=== PATIENT | female | born 1960 | race American Indian/Alaskan Native ===

== ENCOUNTER 2017-08-10 16:47 | Emergency (ER) | payer OTHER ==
[2017-08-11] MEDS: CATAPRES PO ONE (01:53)
[2017-08-11] MEDS: NITROSTAT SL ONE (01:54)
[2017-08-11 03:07] LABS: Basophils % (Auto) 0.2 % (0.0-1.8); Eosinophils % (Auto) 0.5 % (0.0-4.3); Hematocrit 45.9 % (30.3-42.9); Hemoglobin 15.6 gm/dl (10.1-14.3); Mean Corpuscular HGB Conc 34 % (30-34); Mean Corpuscular Hemoglobin 32 pg (28-32); Mean Corpuscular Volume 93 fl (79-97); Red Blood Count 4.92 M/mm3 (3.65-5.03); Red Cell Distribution Width 14.1 % (13.2-15.2); White Blood Count 6.5 K/mm3 (4.5-11.0)
[2017-08-11 03:09] LABS: Anion Gap 18 mmol/L; BUN/Creatinine Ratio 19; Blood Urea Nitrogen 13 mg/dL (7-17); Calcium 9.6 mg/dL (8.4-10.2); Carbon Dioxide 27 mmol/L (22-30); Chloride 96.8 mmol/L (98-107); Glucose 123 mg/dL (65-100); Potassium 3.8 mmol/L (3.6-5.0); Sodium 138 mmol/L (137-145)
[2017-08-11 03:13] LABS: Platelet Count 84 K/mm3 (140-440)
[2017-08-11 03:18] LABS: INR 0.87 (0.87-1.13)
[2017-08-11 03:19] LABS: Partial Thromboplastin Time 27.2 Sec. (24.2-36.6)
[2017-08-11] MEDS: PERCOCET 5/325 PO ONE (04:51)
--- NOTE | 2017-08-11 05:36 | Emergency Department Report ---
ED Chest Pain HPI - General Chief Complaint: Chest Pain Stated Complaint: CHEST PAIN Time Seen by Provider: 08/11/17 03:55 Source: patient, old records reviewed Mode of arrival: Ambulatory Limitations: No Limitations - History of Present Illness Initial Comments: 56-year-old female with a past medical history of asthma, or hypertension, and previous tubal ligation presents to the hospital pending a chest pain 1 day. Patient states pain was initially sharp, but while waiting to be evaluated in the ED it is now squeezing and pressure-like. Pain is constant. Worse with movement. Initially patient denies shortness of breath. She reports shortness of breath during pain episodes. No complaints of nausea, vomiting, diaphoresis , calf tenderness or edema. 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 Patient was admitted here in December for chest pain and negative CT angiogram and stress test. Patient presented with elevated blood pressure in a pool clonidine 0.2 given in triage. She admits to intermittent compliance with her medications. PMD Dr Lewis Severity scale (0 -10): 7 - Related Data Home Medications Medication Instructions Recorded Confirmed Last Taken Naproxen Sodium [Aleve TAB] 220 mg PO PRN PRN 01/22/15 01/02/17 01/15/15 Previous Rx's Medication Instructions Recorded Last Taken Type Carvedilol [Coreg] 6.25 mg PO BID #60 tablet 01/03/17 Unknown Rx Lisinopril [Zestril TAB] 40 mg PO BID #60 tablet 01/03/17 Unknown Rx Pantoprazole [Protonix TAB] 40 mg PO DAILY #30 tablet 01/03/17 Unknown Rx metFORMIN [Glucophage] 500 mg PO BID #60 tablet 01/03/17 Unknown Rx oxyCODONE /ACETAMINOPHEN [Percocet 1 tab PO Q6HR PRN #15 tablet 08/11/17 Unknown Rx 5/325] Allergies Allergy/AdvReac Type Severity Reaction Status Date / Time erythromycin base Allergy Rash Verified 08/01/13 16:21 [Erythromycin Base] hydrocodone [Hydrocodone] Allergy Rash Verified 08/01/13 16:21 Penicillins Allergy Rash Verified 08/01/13 16:21 Sulfa (Sulfonamide Allergy Rash Verified 08/01/13 16:21 Antibiotics) tetracycline [Tetracycline] Allergy Rash Verified 08/01/13 16:21 Heart Score - HEART Score History: Slightly suspicious EKG: Non-specific Age: < 45 Risk factors: 1-2 risk factors Troponin: < normal limit HEART Score: 2 ED Review of Systems ROS: Stated complaint: CHEST PAIN Other details as noted in HPI Comment: All other systems reviewed and negative Other: Constitutional: No fevers chills or weight loss Eyes: No eye pain visual changes or discharge ENT: No ear pain or throat pain Neck: Denies pain Respiratory: As per HPI Cardiovascular: Denies palpitations, syncope GI: Denies abdominal pain, nausea, vomiting : Denies dysuria, urinary frequency, or urgency Musculoskeletal: Denies back pain, joint swelling Skin: Denies rash, lesions, erythema Neurologic: Denies headache, numbness, weakness Psychiatric: Denies suicidal ideation, hallucinations ED Past Medical Hx - Past Medical History Previous Medical History?: Yes Hx Hypertension: Yes Hx Congestive Heart Failure: No Hx Diabetes: Yes Hx GERD: Yes Hx Asthma: Yes Hx COPD: No Hx HIV: No - Surgical History Past Surgical History?: Yes Additional Surgical History: tubal ligation - Social History Smoking Status: Never Smoker - Medications Home Medications: Home Medications Medication Instructions Recorded Confirmed Last Taken Type Naproxen Sodium [Aleve TAB] 220 mg PO PRN PRN 01/22/15 01/02/17 01/15/15 History Carvedilol [Coreg] 6.25 mg PO BID #60 tablet 01/03/17 Unknown Rx Lisinopril [Zestril TAB] 40 mg PO BID #60 tablet 01/03/17 Unknown Rx Pantoprazole [Protonix TAB] 40 mg PO DAILY #30 tablet 01/03/17 Unknown Rx metFORMIN [Glucophage] 500 mg PO BID #60 tablet 01/03/17 Unknown Rx oxyCODONE /ACETAMINOPHEN [Percocet 1 tab PO Q6HR PRN #15 tablet 08/11/17 Unknown Rx 5/325] ED Physical Exam - General Limitations: No Limitations - Other Other exam information: General: No limitations, patient is alert in no acute distress Head exam: Atraumatic, normocephalic Eyes exam: Normal appearance ENT: Moist mucous membrane, normal oropharynx Neck exam: Normal inspection, full range of motion, no meningismus nontender Respiratory exam: Clear to auscultation bilateral, no wheezes, rales, crackles Cardiovascular: Normal rate and rhythm, normal heart sounds. Reproducible mid sternal chest wall tenderness Abdomen: Soft, nondistended, and nontender, with normal bowel sounds, no rebound, or guarding Extremity: Full range of motion normal inspection no deformity, tenderness or edema Back: Normal Inspection, full range of motion, no tenderness Neurologic: Alert, oriented x3, cranial nerves intact, no motor or sensory deficit Psychiatric: normal affect, normal mood Skin: Warm, dry, intact ED Course Vital Signs 08/10/17 08/11/17 08/11/17 16:58 01:25 01:53 Temperature 98.3 F 98.1 F Pulse Rate 84 65 73 Respiratory 18 22 Rate Blood Pressure 138/100 195/105 195/105 Blood Pressure [Right] O2 Sat by Pulse 100 98 Oximetry 08/11/17 08/11/17 08/11/17 01:54 01:57 02:57 Temperature 98.2 F Pulse Rate 73 87 76 Respiratory 18 18 Rate Blood Pressure 195/105 97/69 Blood Pressure 141/95 [Right] O2 Sat by Pulse 100 97 Oximetry 08/11/17 08/11/17 08/11/17 03:28 03:30 03:46 Temperature Pulse Rate 66 72 Respiratory 18 19 18 Rate Blood Pressure 117/85 Blood Pressure [Right] O2 Sat by Pulse 98 Oximetry 08/11/17 08/11/17 08/11/17 04:00 04:30 04:51 Temperature Pulse Rate 58 L 52 L Respiratory 12 14 18 Rate Blood Pressure 117/85 116/73 Blood Pressure [Right] O2 Sat by Pulse 98 Oximetry MAXIME score - Maxime Score Age > 65: (0) No Aspirin use within the Past 7 Days: (0) No 3 or more CAD Risk Factors: (0) No 2 or more Angina events in past 24 hrs: (0) No Known CAD with more than 50% Stenosis: (0) No Elevated Cardiac Markers: (0) No ST Deviation Greater than 0.5mm: (0) No MAXIME Score: 0 ED Medical Decision Making - Lab Data Result diagrams: 08/11/17 02:28 08/11/17 02:28 Lab Results 08/11/17 08/11/17 08/11/17 Range/Units 02:28 02:28 02:28 WBC 6.5 (4.5-11.0) K/mm3 RBC 4.92 (3.65-5.03) M/mm3 Hgb 15.6 H (10.1-14.3) gm/dl Hct 45.9 H (30.3-42.9) % MCV 93 (79-97) fl MCH 32 (28-32) pg MCHC 34 (30-34) % RDW 14.1 (13.2-15.2) % Plt Count 84 L (140-440) K/mm3 Lymph % (Auto) 43.7 H (13.4-35.0) % [place] % (Auto) 11.2 H (0.0-7.3) % Eos % (Auto) 0.5 (0.0-4.3) % Baso % (Auto) 0.2 (0.0-1.8) % Lymph # 2.8 (1.2-5.4) K/mm3 [place] # 0.7 (0.0-0.8) K/mm3 Eos # 0.0 (0.0-0.4) K/mm3 Baso # 0.0 (0.0-0.1) K/mm3 Seg Neutrophils % 44.4 (40.0-70.0) % Seg Neutrophils # 2.9 (1.8-7.7) K/mm3 PT 12.3 (12.2-14.9) Sec. INR 0.87 (0.87-1.13) APTT 27.2 (24.2-36.6) Sec. D-Dimer (0-234) ng/mlDDU Sodium 138 (137-145) mmol/L Potassium 3.8 (3.6-5.0) mmol/L Chloride 96.8 L (98-107) mmol/L Carbon Dioxide 27 (22-30) mmol/L Anion Gap 18 mmol/L BUN 13 (7-17) mg/dL Creatinine 0.7 (0.7-1.2) mg/dL Estimated GFR > 60 ml/min BUN/Creatinine Ratio 19 % Glucose 123 H (65-100) mg/dL Calcium 9.6 (8.4-10.2) mg/dL Troponin T < 0.010 (0.00-0.029) ng/mL 08/11/17 08/11/17 Range/Units 04:19 04:19 WBC (4.5-11.0) K/mm3 RBC (3.65-5.03) M/mm3 Hgb (10.1-14.3) gm/dl Hct (30.3-42.9) % MCV (79-97) fl MCH (28-32) pg MCHC (30-34) % RDW (13.2-15.2) % Plt Count (140-440) K/mm3 Lymph % (Auto) (13.4-35.0) % [place] % (Auto) (0.0-7.3) % Eos % (Auto) (0.0-4.3) % Baso % (Auto) (0.0-1.8) % Lymph # (1.2-5.4) K/mm3 [place] # (0.0-0.8) K/mm3 Eos # (0.0-0.4) K/mm3 Baso # (0.0-0.1) K/mm3 Seg Neutrophils % (40.0-70.0) % Seg Neutrophils # (1.8-7.7) K/mm3 PT (12.2-14.9) Sec. INR (0.87-1.13) APTT (24.2-36.6) Sec. D-Dimer 235.06 H (0-234) ng/mlDDU Sodium (137-145) mmol/L Potassium (3.6-5.0) mmol/L Chloride (98-107) mmol/L Carbon Dioxide (22-30) mmol/L Anion Gap mmol/L BUN (7-17) mg/dL Creatinine (0.7-1.2) mg/dL Estimated GFR ml/min BUN/Creatinine Ratio % Glucose (65-100) mg/dL Calcium (8.4-10.2) mg/dL Troponin T < 0.010 (0.00-0.029) ng/mL - EKG Data -: EKG Interpreted by Me (sinus rate 70, no stemi, no t inv) - EKG Data When compared to previous EKG there are: no significant change (compared to December 2016) - Radiology Data Radiology results: image reviewed (chest x-ray: No acute findings) - Medical Decision Making Patient's troponin is negative after being in the ED greater than 10 hours. Negative stress test December 2016 as well as negative CT angiogram chest. D- dimer is less than 250 and pain is reproducible without signs of DVT and a low pretest probability.. Patient received Percocet for pain with relief. Given a history of GERD NSAIDs will be avoided. Patient was treated symptomatically for pain and encouraged to follow up as an outpatient. Patient has chronic thrombocytopenia that is unchanged compared to previous Patient states she is being worked up as an outpatient for her thrombocytopenia by Dr Hernandez - Differential Diagnosis costochondritis, PR, unstable angina, PE Critical Care Time: No Critical care attestation.: If time is entered above; I have spent that time in minutes in the direct care of this critically ill patient, excluding procedure time. ED Disposition Clinical Impression: Costochondral chest pain, Uncontrolled hypertension, Thrombocytopenia Disposition: TO HOME OR SELFCARE Is pt being admited?: No Condition: Stable Instructions: Hypertension (ED), Costochondritis (ED) Additional Instructions: Take the medication as prescribed. Return if symptoms worsen. Prescriptions: oxyCODONE /ACETAMINOPHEN [Percocet 5/325] 1 tab PO Q6HR PRN #15 tablet PRN Reason: Pain Referrals: BRUNO LEWIS MD [Staff Physician] - 3-5 Days Time of Disposition: 05:43
[2017-08-11 05:54] VITALS: BP 102/70
--- NOTE | 2017-08-11 07:33 | XRay Report ---
AP CHEST: HISTORY: chest pain AP view of the chest demonstrates a normal mediastinal and cardiac contour with clear lungs and normal bony and soft tissue structures. IMPRESSION: Unremarkable AP chest.
== END 2017-08-11 06:14 | disposition home or self-care (01) ==
LOC: ED 16:47
DX: M94.0 Chondrocostal junction syndrome [Tietze] (principal); I10 Essential (primary) hypertension; D69.6 Thrombocytopenia, unspecified; E11.9 Type 2 diabetes mellitus without complications; K21.9 Gastro-esophageal reflux disease without esophagitis; J45.909 Unspecified asthma, uncomplicated
CPT/HCPCS: 36415; 71010; 80048; 84484; 85025; 85379; 85610; 85730; 93005; 93010

== ENCOUNTER 2017-11-04 23:32 | Emergency (ER) | payer OTHER ==
[2017-11-05] MEDS ORDERED: ASPIRIN PO ONE (00:24)
[2017-11-05 00:53] LABS: Hematocrit 40.3 % (30.3-42.9); Hemoglobin 13.3 gm/dl (10.1-14.3); Mean Corpuscular HGB Conc 33 % (30-34); Mean Corpuscular Hemoglobin 31 pg (28-32); Mean Corpuscular Volume 96 fl (79-97); Red Blood Count 4.21 M/mm3 (3.65-5.03)
[2017-11-05 00:57] LABS: Platelet Count 84 K/mm3 (140-440)
[2017-11-05 01:08] LABS: BUN/Creatinine Ratio 20; Blood Urea Nitrogen 12 mg/dL (7-17); Calcium 9.2 mg/dL (8.4-10.2); Hemolysis Index 4
[2017-11-05 04:49] LABS: Anisocytosis 1+; Band Neutrophils # (Manual) 0.1 K/mm3; Basophils % (Manual) 0 % (0.0-1.8); Total Cells Counted 100
[2017-11-05 04:50] LABS: Large Platelets Few; Platelet Estimate Consistent w Auto
[2017-11-05] MEDS ORDERED: CARAFATE PO ONE (06:57)
[2017-11-05] MEDS ORDERED: ALUM-MAG HYDROX-SIMETH 200-200-20MG/5ML PO ONE (06:57)
[2017-11-05] MEDS ORDERED: TYLENOL PO ONE (06:57)
--- NOTE | 2017-11-05 06:58 | Emergency Department Report ---
ED Chest Pain HPI - General Chief Complaint: Chest Pain Stated Complaint: CHEST PAIN Time Seen by Provider: 11/05/17 06:44 Source: patient, RN notes reviewed Mode of arrival: Ambulatory Limitations: No Limitations - History of Present Illness Initial Comments: Cardiology: Dr. Waqas Thorpe Past medical history: Hypertension, GERD, diabetes, reflux, associated DVT in the 1970s This is a 57-year-old female who is previously unknown to this provider, presented to the ER with a complaint of chest pain. The chest pain is central and right-sided. It does not radiate to the back, arms or neck. It has no exacerbating or relieving factors. Patient denies nausea, vomiting, diaphoresis , shortness of breath. She denies leg pain, leg swelling, recent surgeries, recent hospital admissions, recent periods of immobility. Patient had a negative nuclear stress test at this hospital December 2016, and in 2012 had a cardiac catheterization which demonstrated mostly normal coronary arteries, with the exception of "mild ostial disease of a small subcutaneous branch of the mid-diagonal branch of the left anterior descending. Otherwise, essentially angiographically normal coronary arteries." MD Complaint: chest pain -: Gradual, hour(s) (patient reports that her chest pain started at 9:00 last night.) Pain Location: substernal, right chest Pain Radiation: none Severity: mild Severity scale (0 -10): 4 Quality: aching Improves With: nothing Worsens With: nothing re: denies: nausea, vomting, diaphoresis Aspirin use within the Past 7 Days: (1) Yes - Related Data On Oral Contraceptives: No Home Medications Medication Instructions Recorded Confirmed Last Taken Naproxen Sodium [Aleve TAB] 220 mg PO PRN PRN 01/22/15 01/02/17 01/15/15 Previous Rx's Medication Instructions Recorded Last Taken Type Carvedilol [Coreg] 6.25 mg PO BID #60 tablet 01/03/17 Unknown Rx Lisinopril [Zestril TAB] 40 mg PO BID #60 tablet 01/03/17 Unknown Rx Pantoprazole [Protonix TAB] 40 mg PO DAILY #30 tablet 01/03/17 Unknown Rx metFORMIN [Glucophage] 500 mg PO BID #60 tablet 01/03/17 Unknown Rx oxyCODONE /ACETAMINOPHEN [Percocet 1 tab PO Q6HR PRN #15 tablet 08/11/17 Unknown Rx 5/325] Allergies Allergy/AdvReac Type Severity Reaction Status Date / Time erythromycin base Allergy Rash Verified 08/01/13 16:21 [Erythromycin Base] hydrocodone [Hydrocodone] Allergy Rash Verified 08/01/13 16:21 Penicillins Allergy Rash Verified 08/01/13 16:21 Sulfa (Sulfonamide Allergy Rash Verified 08/01/13 16:21 Antibiotics) tetracycline [Tetracycline] Allergy Rash Verified 08/01/13 16:21 Heart Score - HEART Score History: Slightly suspicious EKG: Non-specific Age: 45-65 Risk factors: 1-2 risk factors Troponin: < normal limit HEART Score: 3 - Critical Actions Critical Actions: 0-3 pts:0.9-1.7%risk of adverse cardiac event.Candidate for discharge ED Review of Systems ROS: Stated complaint: CHEST PAIN Other details as noted in HPI ED Past Medical Hx - Past Medical History Previous Medical History?: Yes Hx Hypertension: Yes Hx Congestive Heart Failure: No Hx Diabetes: Yes Hx GERD: Yes Hx Asthma: Yes Hx COPD: No Hx HIV: No - Surgical History Past Surgical History?: Yes Additional Surgical History: tubal ligation - Social History Smoking Status: Never Smoker Substance Use Type: None - Medications Home Medications: Home Medications Medication Instructions Recorded Confirmed Last Taken Type Naproxen Sodium [Aleve TAB] 220 mg PO PRN PRN 01/22/15 01/02/17 01/15/15 History Carvedilol [Coreg] 6.25 mg PO BID #60 tablet 01/03/17 Unknown Rx Lisinopril [Zestril TAB] 40 mg PO BID #60 tablet 01/03/17 Unknown Rx Pantoprazole [Protonix TAB] 40 mg PO DAILY #30 tablet 01/03/17 Unknown Rx metFORMIN [Glucophage] 500 mg PO BID #60 tablet 01/03/17 Unknown Rx oxyCODONE /ACETAMINOPHEN [Percocet 1 tab PO Q6HR PRN #15 tablet 08/11/17 Unknown Rx 5/325] ED Physical Exam - General Limitations: No Limitations General appearance: alert, in no apparent distress - Head Head exam: Present: atraumatic, normocephalic - Eye Eye exam: Present: normal appearance - ENT ENT exam: Present: normal exam, normal orophraynx, mucous membranes moist, normal external ear exam - Neck Neck exam: Present: normal inspection, full ROM - Respiratory Respiratory exam: Present: normal lung sounds bilaterally. Absent: respiratory distress - Cardiovascular Cardiovascular Exam: Present: regular rate, normal rhythm, normal heart sounds. Absent: systolic murmur, diastolic murmur, rubs, gallop - GI/Abdominal GI/Abdominal exam: Present: soft, normal bowel sounds. Absent: distended, tenderness, guarding, rebound, rigid, pulsatile mass - Extremities Exam Extremities exam: Present: normal inspection, full ROM, normal capillary refill. Absent: tenderness, pedal edema, joint swelling, calf tenderness - Back Exam Back exam: Present: normal inspection, full ROM. Absent: tenderness, CVA tenderness (R), paraspinal tenderness, vertebral tenderness - Neurological Exam Neurological exam: Present: alert, oriented X3, CN II-XII intact, normal gait, other (Extraocular movements intact. Tongue midline. No facial droop. Facial sensation intact to light touch in the V1, V2, V3 distribution bilaterally. 5 and 5 strength in 4 extremities.. Sensation is intact to light touch in 4 extremities.). Absent: motor sensory deficit - Psychiatric Psychiatric exam: Present: normal affect, normal mood - Skin Skin exam: Present: warm, dry, intact, normal color. Absent: rash ED Course Vital Signs 11/04/17 11/05/17 11/05/17 23:34 00:20 04:41 Temperature 98.2 F 98.2 F 97.9 F Pulse Rate 67 61 58 L Respiratory 16 18 16 Rate Blood Pressure 212/103 212/103 201/99 Blood Pressure [Left] O2 Sat by Pulse 100 99 100 Oximetry 11/05/17 11/05/17 11/05/17 05:08 05:15 05:20 Temperature Pulse Rate 55 L Respiratory 13 16 Rate Blood Pressure Blood Pressure [Left] O2 Sat by Pulse 99 100 99 Oximetry 11/05/17 11/05/17 11/05/17 05:30 05:45 06:00 Temperature Pulse Rate 52 L 60 54 L Respiratory 14 13 14 Rate Blood Pressure 183/97 183/97 181/95 Blood Pressure [Left] O2 Sat by Pulse 98 100 99 Oximetry 11/05/17 11/05/17 11/05/17 06:15 06:30 06:45 Temperature Pulse Rate Respiratory Rate Blood Pressure 181/95 189/96 189/96 Blood Pressure [Left] O2 Sat by Pulse 100 99 99 Oximetry 11/05/17 11/05/17 07:10 07:15 Temperature 97.8 F Pulse Rate 55 L 57 L Respiratory 17 18 Rate Blood Pressure 190/102 Blood Pressure 190/102 [Left] O2 Sat by Pulse 100 99 Oximetry MUKUL score - Mukul Score Age > 65: (0) No Aspirin use within the Past 7 Days: (1) Yes 3 or more CAD Risk Factors: (0) No 2 or more Angina events in past 24 hrs: (0) No Known CAD with more than 50% Stenosis: (0) No Elevated Cardiac Markers: (0) No ST Deviation Greater than 0.5mm: (0) No MUKUL Score: 1 ED Medical Decision Making - Lab Data Result diagrams: 11/05/17 00:28 11/05/17 00:28 Vital Signs 11/04/17 11/05/17 11/05/17 23:34 00:20 04:41 Temperature 98.2 F 98.2 F 97.9 F Pulse Rate 67 61 58 L Respiratory 16 18 16 Rate Blood Pressure 212/103 212/103 201/99 Blood Pressure [Left] O2 Sat by Pulse 100 99 100 Oximetry 11/05/17 11/05/17 11/05/17 05:08 05:15 05:20 Temperature Pulse Rate 55 L Respiratory 13 16 Rate Blood Pressure Blood Pressure [Left] O2 Sat by Pulse 99 100 99 Oximetry 11/05/17 11/05/17 11/05/17 05:30 05:45 06:00 Temperature Pulse Rate 52 L 60 54 L Respiratory 14 13 14 Rate Blood Pressure 183/97 183/97 181/95 Blood Pressure [Left] O2 Sat by Pulse 98 100 99 Oximetry 11/05/17 11/05/17 11/05/17 06:15 06:30 06:45 Temperature Pulse Rate Respiratory Rate Blood Pressure 181/95 189/96 189/96 Blood Pressure [Left] O2 Sat by Pulse 100 99 99 Oximetry 11/05/17 11/05/17 07:10 07:15 Temperature 97.8 F Pulse Rate 55 L 57 L Respiratory 17 18 Rate Blood Pressure 190/102 Blood Pressure 190/102 [Left] O2 Sat by Pulse 100 99 Oximetry Lab Results 11/05/17 11/05/17 11/05/17 Range/Units 00:28 00:28 03:28 WBC 5.1 (4.5-11.0) K/mm3 RBC 4.21 (3.65-5.03) M/mm3 Hgb 13.3 (10.1-14.3) gm/dl Hct 40.3 (30.3-42.9) % MCV 96 (79-97) fl MCH 31 (28-32) pg MCHC 33 (30-34) % RDW 13.0 L (13.2-15.2) % Plt Count 84 L (140-440) K/mm3 Lymph % (Auto) Bpm Developer Add Manual Diff Complete Total Counted 100 Seg Neutrophils % Bpm Developer Seg Neuts % (Manual) 34.0 L (40.0-70.0) % Band Neutrophils % 2.0 % Lymphocytes % (Manual) 45.0 H (13.4-35.0) % Reactive Lymphs % (Man) 0 % Monocytes % (Manual) 14.0 H (0.0-7.3) % Eosinophils % (Manual) 3.0 (0.0-4.3) % Basophils % (Manual) 0 (0.0-1.8) % Metamyelocytes % 2.0 % Myelocytes % 0 % Promyelocytes % 0 % Blast Cells % 0 % Nucleated RBC % 1.0 H (0.0-0.9) % Seg Neutrophils # Man 1.7 L (1.8-7.7) K/mm3 Band Neutrophils # 0.1 K/mm3 Lymphocytes # (Manual) 2.3 (1.2-5.4) K/mm3 Abs React Lymphs (Man) 0.0 K/mm3 Monocytes # (Manual) 0.7 (0.0-0.8) K/mm3 Eosinophils # (Manual) 0.2 (0.0-0.4) K/mm3 Basophils # (Manual) 0.0 (0.0-0.1) K/mm3 Metamyelocytes # 0.1 K/mm3 Myelocytes # 0.0 K/mm3 Promyelocytes # 0.0 K/mm3 Blast Cells # 0.0 K/mm3 WBC Morphology Not Reportable Hypersegmented Neuts Not Reportable Hyposegmented Neuts Not Reportable Hypogranular Neuts Not Reportable Smudge Cells Not Reportable Toxic Granulation Not Reportable Toxic Vacuolation Not Reportable Dohle Bodies Not Reportable Pelger-Huet Anomaly Not Reportable Kt Rods Not Reportable Platelet Estimate Consistent w auto Clumped Platelets Not Reportable Plt Clumps, EDTA Not Reportable Large Platelets Few Giant Platelets Not Reportable Platelet Satelliting Not Reportable Plt Morphology Comment Not Reportable RBC Morphology Not Reportable Dimorphic RBCs Not Reportable Polychromasia Not Reportable Hypochromasia Not Reportable Poikilocytosis Not Reportable Anisocytosis 1+ Microcytosis Not Reportable Macrocytosis Not Reportable Spherocytes Not Reportable Pappenheimer Bodies Not Reportable Sickle Cells Not Reportable Target Cells Not Reportable Tear Drop Cells Not Reportable Ovalocytes Not Reportable Helmet Cells Not Reportable Lan-Raeford Bodies Not Reportable [place] Rings Not Reportable Verona Cells Not Reportable Bite Cells Not Reportable Crenated Cell Not Reportable Elliptocytes Not Reportable Acanthocytes (Spur) Not Reportable Rouleaux Not Reportable Hemoglobin C Crystals Not Reportable Schistocytes Not Reportable Malaria parasites Not Reportable Giacomo Bodies Not Reportable Hem Pathologist Commnt No Sodium 138 (137-145) mmol/L Potassium 3.7 (3.6-5.0) mmol/L Chloride 98.4 (98-107) mmol/L Carbon Dioxide 27 (22-30) mmol/L Anion Gap 16 mmol/L BUN 12 (7-17) mg/dL Creatinine 0.6 L (0.7-1.2) mg/dL Estimated GFR > 60 ml/min BUN/Creatinine Ratio 20 % Glucose 95 (65-100) mg/dL Calcium 9.2 (8.4-10.2) mg/dL Troponin T < 0.010 < 0.010 (0.00-0.029) ng/mL - EKG Data -: EKG Interpreted by Ia - EKG Data 11/05/17 07:56 EKG #1 demonstrates normal sinus, bradycardia, 54 bpm, borderline left axis, atrial enlargement, normal intervals, not consistent with a STEMI, appears unchanged from prior EKG from July 2017. EKG #2 is essentially unchanged, however limited by motion artifact, EKG #3 is unchanged, appears to be within normal limits, none of the 3 EKGs performed were consistent with a STEMI - Radiology Data Radiology results: report reviewed, image reviewed X-ray of the chest, interpreted by myself and radiology: No acute disease - Medical Decision Making Differential diagnosis, including not limited to: GERD, gastritis, hiatal hernia , pneumonia, pneumothorax, acute coronary syndrome, pericarditis, myocarditis Assessment and plan: 57-year-old female who presents with chest pain. Has a few cardiovascular risk factors, however objectively speaking troponins negative 2, chest x-ray unremarkable, patient has equal pulses in the bilateral upper and lower extremities, and her EKG, while demonstrated some nonspecific morphologic abnormalities, appears unchanged from prior. Patient had a cardiac risk stratification December 2016 which was deemed normal. Elevated blood pressure is appreciated, however this appears to be a chronic issue. Given normal chest x-ray, normal pulses, and given that the patient is playing on a cellular phone in her stretcher, does not appear to be in any distress, and has been observed in the ER 4 hours, I think aortic disease is very unlikely. I have discussed the patient's care with the covering motel front desk attendant for her primary motel front desk attendant, Dr. Elaine Cervantes. Given history, physical, recent ACS risk stratification's, objective data, we find the patient to be low risk for major nurse cardiac event, and he agrees the patient is suitable to follow up closely as an outpatient for her atypical chest pain. No DVT or pulmonary embolus risk factors, not , no recent surgeries, I don't believe that her history merits further workup for pulmonary embolus. The patient was treated with pain medication, she is instructed to follow-up with her outpatient motel front desk attendant as directed. Critical care attestation.: If time is entered above; I have spent that time in minutes in the direct care of this critically ill patient, excluding procedure time. ED Disposition Clinical Impression: Chest pain, Hypertension Disposition: DC-01 TO HOME OR SELFCARE Is pt being admited?: No Does the pt Need Aspirin: No Condition: Stable Instructions: Chest Pain (ED), Hypertension (ED) Additional Instructions: Continue outpatient medications. Follow up with her motel front desk attendant within the next 2-3 days. Please contact her motel front desk attendant's office, but the note that I have personally spoken with Dr. Cervantes, and they would like to see you in the office as a follow-up as recommended. Please note that blood pressure was elevated, and this also should be followed up by her motel front desk attendant or primary care doctor within the recommended timeframe. Please note that elevated blood pressure can cause complications, including stroke, heart attack, disability, , paralysis and loss of quality of life. Therefore, it is very important to take her blood pressure medications, and to closely follow-up. Please return to the ER right away with new pain, worsened pain, migration of pain, fevers, chills, lethargy, irritability, projectile vomiting, change in mental status, confusion, inability to tolerate liquid feeds. Referrals: PRIMARY CAREMD [Primary Care Provider] - 3-5 Days DREW CERVANTES MD [Staff Physician] - 3-5 Days
--- NOTE | 2017-11-05 07:52 | XRay Report ---
FINAL REPORT EXAM: XR CHEST ROUTINE 2V HISTORY: Chest pain. TECHNIQUE: Frontal and lateral radiographs of the chest were obtained. No prior radiographs are available for comparison. FINDINGS: The cardiac silhouette and mediastinum are within normal limits. The lungs are clear bilaterally, without focal infiltrate or effusion. There is no pneumothorax. Minimal spondylotic changes are seen in the spine. IMPRESSION: No active disease seen in the chest.
[2017-11-05 10:02] VITALS: BP 144/81
== END 2017-11-05 10:05 | disposition home or self-care (01) ==
LOC: ED 23:32
DX: R07.2 Precordial pain (principal); I10 Essential (primary) hypertension; E11.9 Type 2 diabetes mellitus without complications; K21.9 Gastro-esophageal reflux disease without esophagitis; J45.909 Unspecified asthma, uncomplicated; Z98.51 Tubal ligation status; Z88.1 Allergy status to other antibiotic agents; Z88.5 Allergy status to narcotic agent; Z88.0 Allergy status to penicillin; Z88.2 Allergy status to sulfonamides
CPT/HCPCS: 36415; 71046; 80048; 84484; 85007; 85025; 93005; 93010

== ENCOUNTER 2020-05-15 14:21 | Emergency (ER) | payer OTHER ==
--- NOTE | 2020-05-15 15:45 | Event Note ---
ED Screening Note ED Screening Note: sp covid and dc from hosp worsening s/s This initial assessment/diagnostic orders/clinical plan/treatment(s) is/are subject to change based on patients health status, clinical progression and re- assessment by fellow clinical providers in the ED. Further treatment and workup at subsequent clinical providers discretion. Patient/guardian urged not to elope from the ED as their condition may be serious if not clinically assessed and managed. Initial orders include: xray labs
--- NOTE | 2020-05-15 16:15 | XRay Report ---
CHEST 2 VIEWS INDICATION / CLINICAL INFORMATION: Shortness of breath. COMPARISON: Chest x-ray on 05/01/2020 FINDINGS: SUPPORT DEVICES: None. HEART / MEDIASTINUM: No significant abnormality. LUNGS / PLEURA: Stable patchy bilateral mid and lower lung pulmonary opacities. No pneumothorax. ADDITIONAL FINDINGS: No significant additional findings. IMPRESSION: 1. Stable patchy mid and lower lung opacities. Signer Name: Joseph Thompson MD Signed: 05/15/2020 4:10 PM Workstation Name: [id number]
[2020-05-15 16:39] LABS: Basophils # (Auto) 0.1 K/mm3 (0.0-0.1); Eosinophils % (Auto) 0.5 % (0.0-4.3); Hematocrit 43.4 % (30.3-42.9); Hemoglobin 14.3 gm/dl (10.1-14.3); Lymphocytes # (Auto) 3.3 K/mm3 (1.2-5.4); Lymphocytes % (Auto) 48.5 % (13.4-35.0); Mean Corpuscular HGB Conc 33 % (30-34); Mean Corpuscular Volume 93 fl (79-97); Monocytes # (Auto) 0.4 K/mm3 (0.0-0.8); Monocytes % (Auto) 6.6 % (0.0-7.3); Platelet Count 155 K/mm3 (140-440); Red Blood Count 4.67 M/mm3 (3.65-5.03); Red Cell Distribution Width 13.7 % (13.2-15.2)
[2020-05-15 16:54] LABS: Alanine Aminotransferase 19 units/L (7-56); BUN/Creatinine Ratio 21; Blood Urea Nitrogen 15 mg/dL (7-17); Calcium 9.8 mg/dL (8.4-10.2); Hemolysis Index 17
--- NOTE | 2020-05-16 00:08 | Emergency Department Report ---
ED Shortness of Breath HPI - General Chief Complaint: Dyspnea/Respdistress Stated Complaint: WHEEZING/SOB Time Seen by Provider: 05/15/20 15:45 Source: patient Mode of arrival: Ambulatory Limitations: No Limitations - History of Present Illness Initial Comments: 59-year-old female with history of asthma, COVID-19, presents to ED with wheezing and shortness of breath x3 days. Patient was admitted on May 02 and discharged on May 03 following admission for COVID. Patient states she has had a continuous cough for approximately 1 month now. Patient was discharged with prescription for dexamethasone, however she states the it was unavailable at the pharmacy. Patient states she has been using her breathing machine and inhaler at home. Patient states she does not feel like she is wheezing at this time. MD Complaint: shortness of breath -: days(s) (3) Severity: moderate Consistency: intermittent Improves With: bronchodilators Worsens With: exertion Known History Of: asthma, other (COVID-19) Associated Symptoms: cough Treatments Prior to Arrival: bronchodilator - Related Data Home Medications Medication Instructions Recorded Confirmed Last Taken Benzonatate [Tessalon Perles] 100 mg PO Q8HR 05/02/20 05/02/20 Unknown Loratadine [Allergy] 10 mg PO QDAY PRN 05/02/20 05/02/20 Unknown NIFEdipine [Nifedipine ER] 30 mg PO QDAY 05/02/20 05/02/20 Unknown Simvastatin 20 mg PO QDAY 05/02/20 05/02/20 Unknown carvediloL [Coreg] 12.5 mg PO BID 05/02/20 05/02/20 Unknown cloNIDine [Catapres] 0.1 mg PO QDAY PRN MDD BP>150 05/02/20 05/02/20 Unknown lisinopriL [Zestril TAB] 40 mg PO QDAY 05/02/20 05/02/20 Unknown metFORMIN [Glucophage] 500 mg PO BID 05/02/20 05/02/20 Unknown Previous Rx's Medication Instructions Recorded Last Taken Type Dexamethasone 6 mg PO DAILY #10 tablet 05/03/20 Unknown Rx Allergies Allergy/AdvReac Type Severity Reaction Status Date / Time erythromycin base Allergy Rash Verified 05/15/20 15:42 [Erythromycin Base] hydrocodone [Hydrocodone] Allergy Rash Verified 05/15/20 15:42 Penicillins Allergy Rash Verified 05/15/20 15:42 Sulfa (Sulfonamide Allergy Rash Verified 05/15/20 15:42 Antibiotics) tetracycline [Tetracycline] Allergy Rash Verified 05/15/20 15:42 ED Review of Systems ROS: Stated complaint: WHEEZING/SOB Other details as noted in HPI Comment: All other systems reviewed and negative Constitutional: denies: chills, fever Respiratory: cough, shortness of breath, wheezing ED Past Medical Hx - Past Medical History Previous Medical History?: Yes Hx Hypertension: Yes Hx Congestive Heart Failure: No Hx Diabetes: Yes Hx GERD: Yes Hx Arthritis: Yes Hx Asthma: Yes Hx COPD: No Hx HIV: No Additional medical history: High cholestrol - Surgical History Past Surgical History?: Yes Additional Surgical History: tubal ligation - Social History Smoking Status: Never Smoker - Medications Home Medications: Home Medications Medication Instructions Recorded Confirmed Last Taken Type Benzonatate [Tessalon Perles] 100 mg PO Q8HR 05/02/20 05/02/20 Unknown History Loratadine [Allergy] 10 mg PO QDAY PRN 05/02/20 05/02/20 Unknown History NIFEdipine [Nifedipine ER] 30 mg PO QDAY 05/02/20 05/02/20 Unknown History Simvastatin 20 mg PO QDAY 05/02/20 05/02/20 Unknown History carvediloL [Coreg] 12.5 mg PO BID 05/02/20 05/02/20 Unknown History cloNIDine [Catapres] 0.1 mg PO QDAY PRN MDD BP>150 05/02/20 05/02/20 Unknown History lisinopriL [Zestril TAB] 40 mg PO QDAY 05/02/20 05/02/20 Unknown History metFORMIN [Glucophage] 500 mg PO BID 05/02/20 05/02/20 Unknown History Dexamethasone 6 mg PO DAILY #10 tablet 05/03/20 Unknown Rx ED Physical Exam - General Limitations: No Limitations General appearance: alert, in no apparent distress, other (Patient lying in stretcher, reading a book) - Head Head exam: Present: atraumatic, normocephalic - Eye Eye exam: Present: normal appearance, EOMI - ENT ENT exam: Present: mucous membranes moist - Neck Neck exam: Present: normal inspection - Respiratory Respiratory exam: Present: normal lung sounds bilaterally. Absent: respiratory distress - Cardiovascular Cardiovascular Exam: Present: regular rate, normal rhythm - GI/Abdominal GI/Abdominal exam: Present: soft. Absent: distended, tenderness - Extremities Exam Extremities exam: Present: normal inspection - Neurological Exam Neurological exam: Present: alert, oriented X3 - Psychiatric Psychiatric exam: Present: normal affect, normal mood - Skin Skin exam: Present: warm, dry, intact, normal color ED Course Vital Signs 05/15/20 05/16/20 05/16/20 15:39 00:07 00:18 Temperature 98.4 F 98.0 F Pulse Rate 76 62 Respiratory 18 20 Rate Blood Pressure 151/93 Blood Pressure 183/90 [Left] O2 Sat by Pulse 100 99 100 Oximetry 05/16/20 00:21 Temperature Pulse Rate Respiratory 18 Rate Blood Pressure Blood Pressure [Left] O2 Sat by Pulse 100 Oximetry ED Medical Decision Making - Lab Data Result diagrams: 05/15/20 16:08 05/15/20 16:08 - Radiology Data Radiology results: report reviewed, image reviewed - Medical Decision Making Chest x-ray stable compared to earlier this month showing patchy mid and lower lung opacities. O2 sats are 100% on room air. Patient is in no respiratory distress, lungs are clear to auscultation. Patient states her PCP called in doxycycline and Z-Rakan 5 days ago, and patient is currently on prednisone as well. No further intervention necessary at this time. Outpatient follow-up advised, return precautions given. - Differential Diagnosis Pneumonia, asthma exacerbation Critical care attestation.: If time is entered above; I have spent that time in minutes in the direct care of this critically ill patient, excluding procedure time. ED Disposition Clinical Impression: Dyspnea Disposition: DC-01 TO HOME OR SELFCARE Is pt being admited?: No Condition: Stable Instructions: Dyspnea (ED) Referrals: BRUNO LOWE MD [Primary Care Provider] - 3-5 Days Time of Disposition: 00:30
[2020-05-16 03:17] VITALS: BP 170/84
== END 2020-05-16 02:30 | disposition home or self-care (01) ==
LOC: ED 14:21
DX: R06.00 Dyspnea, unspecified (principal); I10 Essential (primary) hypertension; E11.9 Type 2 diabetes mellitus without complications; K21.9 Gastro-esophageal reflux disease without esophagitis; M19.90 Unspecified osteoarthritis, unspecified site; J45.909 Unspecified asthma, uncomplicated; Z98.51 Tubal ligation status; Z79.899 Other long term (current) drug therapy; Z88.0 Allergy status to penicillin; Z88.2 Allergy status to sulfonamides; Z88.1 Allergy status to other antibiotic agents; Z88.8 Allergy status to other drugs, medicaments and biological substances
CPT/HCPCS: 36415; 71046; 80053; 82140; 85025; 99283